=== PATIENT | male | born 1985 | race African-American/Black ===

== ENCOUNTER 2016-08-03 14:54 | Emergency (ER) | payer SELFPAY ==
[2016-08-03] MEDS ORDERED: SODIUM CHLORIDE 0.9% 1,000 ML ONE (16:46)
[2016-08-03] MEDS ORDERED: ALU/MAG/SIM 30 ML UDC ONE (16:46)
[2016-08-03] MEDS ORDERED: LIDOCAINE 2% VISC 15 ML UDC ONE (16:46)
[2016-08-03] MEDS ORDERED: ONDANSETRON 4 MG VIAL ONE (16:46)
== END 2016-08-03 17:27 | disposition home or self-care (01) ==
LOC: ER 14:54
DX: K29.00 Acute gastritis without bleeding (principal); K21.9 Gastro-esophageal reflux disease without esophagitis; F17.210 Nicotine dependence, cigarettes, uncomplicated; Z87.11 Personal history of peptic ulcer disease
CPT/HCPCS: 36415; 80053; 81003; 83690; 85025; 96374